=== PATIENT | male | born 1955 | race Caucasian/White ===

== ENCOUNTER 2024-09-21 10:37 | Outpatient (CLI) | payer OTHER | END 2024-09-21 10:38 | disposition home or self-care (01) | LOC: BICMRI 10:37 | DX: M75.102 Unspecified rotator cuff tear or rupture of left shoulder, not specified as traumatic (principal); M19.012 Primary osteoarthritis, left shoulder; S46.912A Strain of unspecified muscle, fascia and tendon at shoulder and upper arm level, left arm, initial encounter; M67.814 Other specified disorders of tendon, left shoulder ==